=== PATIENT | female | born 1960 | race Caucasian/White ===

== ENCOUNTER → 2016-11-05 | Outpatient (CLI) | payer BC ==
[~2016-11-05] MED LIST: CARI350T28 PO; CLOB-65 EXT; LORA-741 PO; MONT1TAB3 PO; MULT-188 PO; MXRAIN INH; OMEG12006 PO; VENL150C PO
--- NOTE | 2016-11-06 07:59 | MAMMOGRAPHY REPORT ---
BILATERAL DIGITAL SCREENING MAMMOGRAM TOMOSYNTHESIS WITH CAD: 11/05/2016 CLINICAL HISTORY: Routine screening. Patient has no complaints. TECHNIQUE: Breast tomosynthesis in addition to standard 2D mammography was performed. Current study was also evaluated with a Computer Aided Detection (CAD) system. COMPARISON: Comparison is made to exams dated: 11/01/2015 mammogram, 10/30/2014 mammogram, 05/15/2014 mammogram, 10/31/2013 mammogram, 10/27/2013 mammogram, and 10/26/2012 mammogram - [facility]. BREAST COMPOSITION: The tissue of both breasts is heterogeneously dense, which may obscure small mas ses. FINDINGS: No suspicious masses, calcifications, or areas of architectural distortion are noted in ei ther breast. There has been no significant interval change compared to prior exams. Bilateral benign -appearing calcifications are not significantly changed. IMPRESSION: ACR BI-RADS CATEGORY 2: BENIGN There is no mammographic evidence of malignancy. A 1 year screening mammogram is recommended. The pa tient will receive written notification of the results. Approximately 10% of breast cancers are not detected with mammography. A negative mammographic report should not delay biopsy if a clinically suggestive mass is present. Bibi Perdue M.D. /:11/05/2016 14:46:44 Human Resources Consultant: Heather JACINTO(Carlos)(Efren)(BD), [facility] letter sent: Normal 1/2 BI-RADS Code: ACR BI-RADS Category 2: Benign
== END | disposition home or self-care (01) ==
LOC: C.MAMM 10:32
PROVIDERS: ATTEND Obstetrics & Gynecology
DX: Z00.00 Encounter for general adult medical examination without abnormal findings (principal); Z12.31 Encounter for screening mammogram for malignant neoplasm of breast; J45.909 Unspecified asthma, uncomplicated; M85.89 Other specified disorders of bone density and structure, multiple sites

== ENCOUNTER → 2017-07-21 | Outpatient (CLI) | payer OTHER ==
[~2017-07-21] MED LIST changes: +GADAVIST IV PRN
--- NOTE | 2017-07-21 11:37 | DIAGNOSTIC IMAGING REPORT ---
CERVICAL SPINE COMBO HISTORY: 57 years-old Female CERVICAL DISC DISEASE,INCREASED PAIN AND SPASM, acute cervical spine pain. History of prior C6-C7 fusion COMPARISON: MRI cervical spine 08/16/2012 TECHNIQUE: Multiplanar multisequence MRI of the cervical spine was obtained both with and without the use of 4.5 ml Gadavist FINDINGS: The large [id number] manager corporate marketing localizer images demonstrate no gross abnormality of the imaged posterior fossa structures are unremarkable. No acute fracture, subluxation or focal bone marrow edema. The growth and the imaged cervical spinal cord appears to be within normal limits. Prior fusion at C6-C7 with near complete bony fusion at this interspace. C2-C3: Minimal intervertebral disc space narrowing with uncovertebral spurring and mild facet arthrosis. No central canal or foraminal narrowing. C3-C4: Minimal intervertebral disc space narrowing with uncovertebral spurring and small posterior annular disc bulge with mild facet arthrosis. No central canal or foraminal narrowing. C4-C5: Mild intervertebral disc space narrowing with broad-based posterior disc osteophyte complex and mild facet arthrosis. There is mild flattening of the ventral thecal sac without significant central canal narrowing. Mild right foraminal narrowing, progressed from prior. Left foramen is patent. C5-C6: Mild to moderate intervertebral disc space narrowing with uncovertebral spurring and mild facet arthrosis. Posterior disc bulge favoring the right lateral recess and right neuroforamen. This causes mild right lateral recess and moderate right foraminal narrowing, unchanged. Central canal and left neuroforamen are generally patent. Unchanged. C6-C7: No central canal or foraminal narrowing. Mild facet arthrosis. C7-T1: Moderate intervertebral disc space narrowing with posterior disc osteophyte complex causing mild central canal narrowing, unchanged. Additionally, there is mild to moderate right and mild left foraminal stenosis, slightly worsened from comparison. The imaged upper thoracic levels are unremarkable. There is no abnormal enhancement identified. IMPRESSION: 1. Postsurgical changes of C6-C7 fusion with satisfactory alignment. 2. At C7-T1, there is mild central canal narrowing, mild to moderate right and mild left foraminal stenosis which has slightly worsened from comparison. 3. 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 4. No high-grade central canal or foraminal narrowing. 5. No abnormal enhancement. The above report was generated using voice recognition software. It may contain grammatical, syntax or spelling errors. Electronically signed by: Rg Mata M.D. 07/21/2017 11:35 AM Dictated Date/Time: 07/21/2017 11:22 AM
== END | disposition home or self-care (01) ==
LOC: C.MRI 10:13
PROVIDERS: ATTEND Psychiatry & Neurology Neurology
DX: M50.90 Cervical disc disorder, unspecified, unspecified cervical region (principal); M47.812 Spondylosis without myelopathy or radiculopathy, cervical region; M48.02 Spinal stenosis, cervical region